=== PATIENT | male | born 1950 | race Caucasian/White ===

== ENCOUNTER → 2016-07-27 | Outpatient (CLI) | payer MEDICARE ==
--- NOTE | 2016-07-27 12:37 | US ---
EXAM DESCRIPTION: Venous,Lower Extremity LT CLINICAL HISTORY: 66 years, Male, PHLEBITIS COMPARISON: None. FINDINGS: The left common femoral, superficial femoral, deep femoral, popliteal, posterior tibial and peroneal veins identified. Appropriate flow compressibility and augmentation. IMPRESSION: No evidence deep venous thrombosis left lower extremity. Electronically signed by: Po Leblanc MD 07/27/2016 12:36 PM CDT
--- NOTE | 2016-07-29 06:22 | CT ---
Procedure: CT LUMBAR SPINE WITHOUT IV CONTRAST Exam date: 07/27/2016 12:00 AM CDT Ordering Provider: WALESKA DOSHI Clinical Indication: LOW BACK PAIN Comparison: Radiographs on August 22, 2013 Technique: Using a multislice scanner, sequential axial imaging was obtained of the lumbar spine. 2D sagittal and coronal reconstructed images were obtained. Findings: Extensive postoperative changes from prior posterior fusion construct with posterior transpedicular screws and rods at L3-L4 as well as transpedicular screws at S1. Anterior interbody fusions noted at L1-L2 as well as a lateral sideplate effusion at L1-L2. There is an interbody fusion at L5-S1 as well as L3-L4. There is solid osseous bridging posterior laterally spanning from L4 through S1. There is partial osseous bridging across the disc space of L1-L2. There is near complete osseous bridging posterior laterally at L2-L3. No definite acute fracture or malalignment. There is no evidence of hardware loosening or hardware fracture. Large right renal cyst is noted with multiple small cysts noted within the left kidney. Otherwise, the visualized retroperitoneum is without focal abnormality. IMPRESSION 1. Extensive postsurgical changes with prior anterior, lateral, and posterior fusion constructs as outlined above. No evidence of hardware failure. There is multilevel solid osseous bridging as outlined. 2. No acute fracture or new traumatic malalignment. 3. No high-grade osseous spinal canal or foraminal stenosis identified. Electronically signed by: Julian Cheng MD 07/29/2016 6:22 AM CDT
--- NOTE | 2016-07-30 01:19 | CT ---
Procedure: CT CERVICAL SPINE WITHOUT IV CONTRAST Exam Date: 07/27/2016 Ordering Provider: WALESKA DOSHI Clinical Indication: NECK PAIN Comparison: None Technique: Using a multislice scanner, sequential axial imaging was obtained from the skull base to the T1 level. 2-D sagittal and coronal reconstruction images were obtained. This exam was performed according to our departmental dose optimization program which includes use of automated exposure control, adjustment of the mA and/or kV according to patient size and/or use of iterative reconstruction technique. Findings: Anterior cervical fusion from C5 to C7. Slight reversal of the normal cervical lordosis. There is no acute fracture or subluxation. Multilevel intervertebral disc space narrowing, facet arthropathy and endplate osteophyte formation. There is severe osseous neural foraminal narrowing on the left at C3-C4. Disc osteophyte complex at C4-C5 with mild to moderate central spinal stenosis and mild to moderate left neural foraminal narrowing. There is at least mild to moderate neural foraminal narrowing bilaterally at C7-T1. There is no lytic or sclerotic lesion. The prevertebral soft tissues are normal. IMPRESSION: 1. No acute fracture or subluxation of the cervical spine. 2. Anterior cervical fusion from C5 to C7 with slight reversal of the normal cervical lordosis. 3. Severe osseous neural foraminal narrowing on the left at C3-C4. 4. Mild to moderate central spinal stenosis and mild to moderate left neural foraminal narrowing at C4-C5. 5. Mild to moderate neural foraminal narrowing bilaterally at C7-T1. Electronically signed by: Avery Rutherford MD 07/30/2016 1:18 AM CDT
== END | disposition home or self-care (01) ==
LOC: CT 11:42
PROVIDERS: ATTEND Family Medicine
DX: N30.00 Acute cystitis without hematuria (principal); I80.02 Phlebitis and thrombophlebitis of superficial vessels of left lower extremity; G60.9 Hereditary and idiopathic neuropathy, unspecified; E03.9 Hypothyroidism, unspecified; M43.22 Fusion of spine, cervical region; M43.26 Fusion of spine, lumbar region

== ENCOUNTER → 2016-11-14 | Outpatient (CLI) | payer MEDICARE | END | disposition home or self-care (01) | LOC: GMAB 10:48 | PROVIDERS: ATTEND Family Medicine | DX: E03.9 Hypothyroidism, unspecified (principal); Z12.5 Encounter for screening for malignant neoplasm of prostate | CPT/HCPCS: 84439; 84443; 84481; G0103 ==

== ENCOUNTER → 2016-12-21 | Outpatient (CLI) | payer MEDICARE, OTHER ==
--- NOTE | 2016-12-22 16:44 | US ---
EXAM DESCRIPTION: Carotid Duplex CLINICAL HISTORY: OCCLUSION AND STENOSIS OF BILATERAL CAROTID ARTERIES COMPARISON: None. TECHNIQUE: Transcutaneous scanning utilizing 2-dimensional and Doppler modes to evaluate the bilateral carotid systems and vertebral arteries. Percentage of diameter of stenosis or no stenosis recorded will be based upon NASCET criteria. FINDINGS: Peak systolic/end diastolic (CM-Sec) CCA Right 76/22 Left 153/32. ICA Right proximal 77/30, distal 102/32. Left proximal 90/15, Distal 87/30. Vertebral Right 50/18 Left 34/7. ECA (PS Only) Right 102 left 75. ICA/CCA peak systolic ratio: Right 1.3 Left 0.6 ICA/CCA end diastolic ratio: Right 1.5 Left 0.5 Vertebral arteries: antegrade flow. Comments: Moderate atherosclerotic calcification in the bilateral carotid bulbs. Bilateral spectral broadening in the pulse wave at these locations. Area stenosis in the right proximal ICA is 25%, 30% diameter stenosis. Area stenosis in the distal left CCA bulb is 50%, diameter stenosis 44%. IMPRESSION: 1. Doppler evaluation of the bilateral carotid systems and vertebral arteries shows no hemodynamically significant stenoses. 2. Moderate amount of calcified plaque seen in the carotid arteries bilaterally. Bilateral vertebral arteries showed antegrade-cephalad flow. Electronically signed by: Lamonte Elizabeth MD 12/22/2016 4:43 PM CDT
== END | disposition home or self-care (01) ==
LOC: US 13:31
PROVIDERS: ATTEND Family Medicine
DX: I65.23 Occlusion and stenosis of bilateral carotid arteries (principal)

== ENCOUNTER → 2017-03-28 | Outpatient (CLI) | payer MEDICARE, OTHER ==
--- NOTE | 2017-03-28 13:27 | RAD ---
EXAM DESCRIPTION: Pelvis CLINICAL HISTORY: PAIN IN LEFT HIP COMPARISON: August 30, 2015 IMPRESSION: Single AP supine view of the pelvis shows no evidence of acute fracture, focal bone destruction, or joint dislocation. Osteoarthritic changes are seen in both hips similar to previous exam. The weightbearing portion of the right femoral head is not seen because of overlying generator pack for spine stimulator limiting evaluation. Hardware fixation of the lower lumbosacral spine is again seen. Electronically signed by: Marc Ricks MD 03/28/2017 1:25 PM [facility]
--- NOTE | 2017-03-28 13:31 | RAD ---
4 views right knee. Indication: KNEE PAIN Comparison: None. Impression: No acute fracture or malalignment. Small suprapatellar knee effusion. Mild narrowing medial compartment without subchondral sclerosis or cystic change. Small joint line spurring of the superior patella. MRI could better evaluate for internal derangement as clinically indicated. Electronically signed by: Daniele Valle MD 03/28/2017 1:29 PM [employer]
== END | disposition home or self-care (01) ==
LOC: RAD 09:32
PROVIDERS: ATTEND Orthopaedic Surgery
DX: M25.561 Pain in right knee (principal); M25.551 Pain in right hip

== ENCOUNTER → 2017-10-24 | Outpatient (CLI) | payer MEDICARE, OTHER ==
--- NOTE | 2017-10-25 09:42 | CT ---
EXAM DESCRIPTION: Head CLINICAL HISTORY: MEMORY LOSS, HEADACHE, DIZZY COMPARISON: None available TECHNIQUE: Noncontrast head CT was performed with routine protocol. FINDINGS: Normal beth-white matter differentiation. Ventricles and sulci are normal for age. No high density hemorrhage, focal edema or shift of the midline. No sulcal effacement. Normal orbital contents. Basilar cisterns appear clear. Intact calvarium with no fracture or lytic lesion. Normal aeration of tympanic cavities and mastoid air cells. No fluid levels in the paranasal sinuses. Skull base appears intact. Symmetrical internal auditory canals. Coronal and sagittal reformatted images confirm the findings. IMPRESSION: No acute intracranial pathologic process. This exam was performed according to our departmental dose-optimization program, which includes automated exposure control, adjustment of the mA and/or kV according to patient size and/or use of iterative reconstruction technique. Total DLP equals 859.97 mGycm. Electronically signed by: Margarito Luong MD 10/25/2017 9:41 AM CDT
== END ==
LOC: CT 10:31
PROVIDERS: ATTEND Family Medicine
DX: R41.9 Unspecified symptoms and signs involving cognitive functions and awareness (principal); R41.82 Altered mental status, unspecified

== ENCOUNTER → 2017-11-21 | Outpatient (CLI) | payer MEDICARE, OTHER | LOC: GMAE 10:27 | PROVIDERS: ATTEND Family Medicine | DX: E03.9 Hypothyroidism, unspecified (principal); Z11.59 Encounter for screening for other viral diseases ==

== ENCOUNTER → 2017-11-22 | Outpatient (CLI) | payer MEDICARE, OTHER ==
--- NOTE | 2017-11-22 17:08 | US ---
EXAM DESCRIPTION: Aorta ultrasound exam with measurements CLINICAL HISTORY: 67 years Male, AAA COMPARISON: None. FINDINGS: Grayscale and color Doppler images of the abdominal aorta are obtained with multiple diameter measurements. Upper abdominal aorta proximally measures 3.1 x 3.5 cm which is prominent. The mid abdominal aorta measures 1.9 x 2.6 cm. The distal abdominal aorta measures 2.3 x 3.0 cm consistent with infrarenal abdominal aortic aneurysm. Common iliac arteries are normal in appearance with a diameter of 1.3 cm on the right and 1.4 cm on the left. Color flow images show positive color flow in the abdominal aorta and in the common iliac arteries. There is moderate arteriosclerotic plaque within the abdominal aorta. IMPRESSION: Ectatic infrarenal abdominal aorta measuring 3 cm in diameter. Follow-up as per recommendations below. AAA Size: Follow-up Recommendation (1): 2.6 - 2.9 cm Every 5 years (2) 3.0 - 3.4 cm Every 3 years 3.5 - 3.9 cm Every 12 months 4.0 - 4.4 cm Every 12 months, vasc consult rec 4.5 - 5.4 cm Every 6 months, vasc consult rec >=5.5 cm Referral to vascular surgeon recommended (1)Based upon the Society for Vascular Surgery Guidelines: J Vasc Surg. 2009 Dec;50(4 Suppl):S2-49 (2)For aortas of max adrian of 2.6-2.9 cm that meet criteria for AAA (>= 1.5 x proximal normal segment) Electronically signed by: Margarito Luong MD 11/22/2017 5:06 PM CDT
== END ==
LOC: US 10:30
PROVIDERS: ATTEND Family Medicine
DX: Z13.89 Encounter for screening for other disorder (principal); I77.811 Abdominal aortic ectasia

== ENCOUNTER → 2018-01-14 | Outpatient (CLI) | payer MEDICARE, OTHER ==
--- NOTE | 2018-01-14 13:45 | US ---
EXAM DESCRIPTION: Venous,Lower Extremity LT CLINICAL HISTORY: SWELLING OF LOWER LEG COMPARISON: None Available. TECHNIQUE: Left lower extremity venous duplex FINDINGS: Doppler evaluation of the left lower extremity deep veins was performed. Normal color flow is seen in the common femoral, superficial femoral, profunda femoral and greater saphenous veins. Normal flow is seen in the popliteal vein and veins below the knee in the calf. Normal venous compressibility and flow augmentation. Debris-filled left popliteal Rodriguez's cyst measures 1.8 x 1.1 x 4 cm. IMPRESSION: Negative for evidence of deep venous thrombosis on left lower extremity venous Doppler sonogram. Left popliteal Rodriguez's cyst. Electronically signed by: Margarito Luong MD 01/14/2018 1:43 PM CDT
--- NOTE | 2018-01-15 08:33 | CT ---
CT left shoulder without contrast INDICATION: Shoulder pain chronic TECHNIQUE: Noncontrast CT imaging left shoulder with helical CT CT images in the axial plane and multiplanar reformats This exam was performed according to our departmental dose-optimization program, which includes automated exposure control, adjustment of the mA and/or kV according to patient size and/or use of iterative reconstruction technique. FINDINGS: There is minimal osteophyte formation of the glenohumeral joint but no advanced arthrosis. Relatively neutral version of the glenoid. There is mild to moderate osteoarthrosis of the AC joint with mild mineralization/chondrocalcinosis. There is cystic change along the inferior glenoid. Mild inferior glenohumeral osteophytes. Minimal grade 1 marbling of the rotator cuff muscle bellies. No end-stage atrophy. IMPRESSION: Mild osteoarthrosis left shoulder No advanced muscle atrophy AC joint osteoarthrosis mild to moderate with mineralization/chondrocalcinosis Electronically signed by: Cory Fry MD 01/15/2018 8:31 AM CDT
== END ==
LOC: CT 11:36
PROVIDERS: ATTEND Orthopaedic Surgery
DX: M19.012 Primary osteoarthritis, left shoulder (principal); M25.512 Pain in left shoulder; M71.22 Synovial cyst of popliteal space [Baker], left knee; R22.42 Localized swelling, mass and lump, left lower limb

== ENCOUNTER → 2018-02-04 | Outpatient (CLI) | payer MEDICARE, OTHER ==
--- NOTE | 2018-02-04 14:17 | RAD ---
EXAM DESCRIPTION: Arthrogram Shoulder Right: RF CLINICAL HISTORY: TEAR OR RUPTURE IN RIGHT SHOULDER. Severe contrast allergy to gadolinium. COMPARISON: Post-arthrogram CT scan of the right shoulder same date. Arthrogram and post-arthrogram CT scan of the left shoulder on the same visit. TECHNIQUE: The procedure was explained to the patient with risks and benefits. The patient gave verbal and written consent. Contrast mixture of 10 mL of non-ionic 300 contrast and 10 mL of sterile normal saline was prepared. Patient supine on the fluoroscopic table with right shoulder in external rotation. The anterior mid superior right glenohumeral joint was localized by fluoroscopy. The skin was marked, then prepped and draped in a sterile fashion. Intradermal, subcutaneous and intramuscular lidocaine 1% was given for topical anesthesia. A 2 inch, 25-gauge needle was introduced into the anterior superior right glenohumeral joint capsule under fluoroscopic visualization. A test injection of 1 cc of non-ionic 300 contrast was performed under fluoroscopy. Additional 9 CC of contrast mixture prepared contrast mixture was then injected under fluoroscopy. The patient tolerated the procedure well. Active exercise. Patient was transferred to the CT suite for spiral-axial and reconstruction imaging. No immediate complications. 1 image of the right shoulder, right external rotation, with injection needle and postcontrast recorded for the patient's permanent medical record. Total fluoroscopic time was 0.4 minutes. DAP: 3.05 Gy-cm2. IMPRESSION: 1. Successful fluoroscopic-guided arthrography of the right shoulder prior to CT scan of the right shoulder. 2. Please refer to post arthrogram CT scan of the right shoulder and report, on this visit. Electronically signed by: Lamonte Elizabeth MD 02/04/2018 2:16 PM [facility]
--- NOTE | 2018-02-04 14:31 | CT ---
CT arthrogram left shoulder INDICATION: Shoulder pain concern for rotator cuff tear TECHNIQUE: Helical CT images through the left shoulder post arthrogram with multiplanar reformats This exam was performed according to our departmental dose-optimization program, which includes automated exposure control, adjustment of the mA and/or kV according to patient size and/or use of iterative reconstruction technique. FINDINGS: No rupture of the subscapularis. No bicep rupture or dislocation. Extracapsular portion is limited due to lack of contrast in the tendon sheath. Moderate AC joint osteoarthrosis with vacuum phenomenon. No high-grade partial or full-thickness tear of the supraspinatus or infraspinatus tendons. Bursal surface partial tears are not visible by CT arthrography. There is mild subchondral depression in the inferior glenoid with several cysts in the inferior aspect degenerative in appearance likely from prior trauma. Tiny ossicle along the inferior aspect as well coronal series 300 image 48 or minimal contrast extension into a small cyst. Mild multifocal synovitis. Mild fraying of the labrum. No displacement. Diffuse ill-defined fraying of the anterior labrum without displacement on the axial images. Prominent sublabral recess at the bicep labral anchor with mild undersurface fraying more posteriorly. IMPRESSION: No high-grade partial or full-thickness rotator cuff tear No advanced muscle atrophy AC joint arthrosis with vacuum phenomenon Diffuse labral fraying Mild glenohumeral osteoarthrosis with no active dislocation Electronically signed by: Cory Fry MD 02/04/2018 2:29 PM [employer]
--- NOTE | 2018-02-04 14:47 | CT ---
CT arthrogram right shoulder INDICATION: Shoulder pain rotator cuff tear TECHNIQUE: Helical CT images of the right shoulder post arthrogram with multiplanar reformats This exam was performed according to our departmental dose-optimization program, which includes automated exposure control, adjustment of the mA and/or kV according to patient size and/or use of iterative reconstruction technique. FINDINGS: No rupture of the subscapularis or retraction. No bicep rupture or dislocation. Mild to moderate AC joint osteoarthrosis. Diffuse degenerative labral fraying. Multifocal subchondral cysts and grade 4 chondrosis in the glenoid indicating mild to moderate glenohumeral osteoarthrosis. Mild undersurface fraying supraspinatus with no high-grade partial or full-thickness rotator cuff tear. No bursal contrast extension. Minimal grade 1 marbling of the rotator cuff muscle bellies symmetric. No bursal contrast extension. Cyst or anchor tract of the superior glenoid correlate with any previous surgery versus degenerative/osteoarthritic change IMPRESSION: AC joint and glenohumeral osteoarthrosis Degenerative glenoid labrum No full-thickness rotator cuff tear No advanced asymmetric atrophy. Reactive synovitis Glenoid retroversion related to osteoarthrosis without subluxation of the humerus Electronically signed by: Cory Fry MD 02/04/2018 2:46 PM [employer]
--- NOTE | 2018-02-04 19:20 | RAD ---
EXAM DESCRIPTION: Arthrogram Shoulder Left: RF CLINICAL HISTORY: TEAR OR RUPTURE IN LEFT SHOULDER COMPARISON: Post-arthrogram CT scan of the left shoulder same date. TECHNIQUE: The procedure was explained to the patient with risks and benefits. The patient gave verbal and written consent. Contrast mixture of 10 mL non-ionic 300 contrast and 10 mL of sterile normal saline was prepared. Patient supine on the fluoroscopic table with left shoulder in external rotation. The anterior mid superior left glenohumeral joint was localized by fluoroscopy. The skin was marked, then prepped and draped in a sterile fashion. Intradermal, subcutaneous and intramuscular 1% Xylocaine was given for topical anesthesia. A 2 inch, 25-gauge needle was introduced into the anterior superior left glenohumeral joint capsule under fluoroscopic visualization. A test injection of 1 cc of non-ionic 300 was performed under fluoroscopy. Additional 9 CC of prepared contrast mixture was then injected under fluoroscopy. The patient tolerated the procedure well. Active exercise. Patient was transferred to the CT suite for spiral-axial and reconstruction imaging. No immediate complications. 1 AP image of the shoulder in external rotation with the injection needle, post contrast injection recorded for the patient's permanent medical record. Total fluoroscopic time was 0.5 minute DAP: 3.02 Gy-cm2. IMPRESSION: Successful, fluoroscopic-guided intra-articular contrast injection of the left shoulder prior to CT scan of the left shoulder. Please refer to post arthrogram CT scan left shoulder examination and report on this visit. Electronically signed by: Lamonte Elizabeth MD 02/04/2018 7:18 PM [facility] [[email or web address]]
== END ==
LOC: RAD 09:00
PROVIDERS: ATTEND Orthopaedic Surgery
DX: M75.102 Unspecified rotator cuff tear or rupture of left shoulder, not specified as traumatic (principal); M75.101 Unspecified rotator cuff tear or rupture of right shoulder, not specified as traumatic; M19.012 Primary osteoarthritis, left shoulder; M19.011 Primary osteoarthritis, right shoulder

== ENCOUNTER → 2018-03-14 | Outpatient (CLI) | payer MEDICARE, OTHER | LOC: LAB.O 08:45 | PROVIDERS: ATTEND Orthopaedic Surgery | DX: M17.0 Bilateral primary osteoarthritis of knee (principal); M25.561 Pain in right knee ==

== ENCOUNTER → 2018-04-08 | Outpatient (CLI) | payer MEDICARE, OTHER | LOC: GMAE 14:46 | PROVIDERS: ATTEND Family Medicine | DX: R06.02 Shortness of breath (principal); E03.9 Hypothyroidism, unspecified ==

== ENCOUNTER → 2018-04-25 | Outpatient (CLI) | payer MEDICARE, OTHER ==
--- NOTE | 2018-04-25 11:44 | CT ---
EXAM DESCRIPTION: Cervical Spine CLINICAL HISTORY: CHRONIC PAIN COMPARISON: None Available. TECHNIQUE: Cervical CT is performed with thin-section axial imaging. MPRs and 3-D reconstructions are created and reviewed as well. FINDINGS: The craniocervical junction is intact. The odontoid process is in good alignment with the lateral masses of C2. Reversal of the normal lordotic curvature is noted. Anterior spinal fixation hardware is noted traversing C5, C6 and C7 vertebral bodies. The vertebral body heights are well-maintained with no acute compression deformity. There is multilevel degenerative disc disease and uncovertebral joint arthropathy. No evidence of subluxation or spondylolisthesis. C2-C3: Mild right and moderate left neural foraminal narrowing is noted secondary to uncovertebral joint arthropathy. C3-C4: Moderate bilateral neural foraminal narrowing is noted secondary to uncovertebral joint arthropathy. C4-C5: Posterior disc osteophyte complex with resultant moderate central canal stenosis. There is moderate to severe bilateral neural foraminal narrowing secondary to uncovertebral joint arthropathy. C5-C6: Mild central canal stenosis and moderate bilateral neural foraminal narrowing is noted. C6-C7: Moderate to severe right and moderate left neural foraminal narrowing is noted secondary to uncovertebral joint arthropathy. C7-T1: Moderate to severe bilateral neural foraminal narrowing is noted secondary to uncovertebral joint arthropathy. The visualized prevertebral and paravertebral soft tissues appear normal. IMPRESSION: Multilevel degenerative disc disease and uncovertebral joint arthropathy throughout the cervical spine with variable degrees of neural foraminal narrowing as detailed above. This exam was performed according to our departmental dose-optimization program, which includes automated exposure control, adjustment of the mA and/or kV according to patient size and/or use of iterative reconstruction technique. Electronically signed by: Judy Cleveland MD 04/25/2018 11:41 AM [facility]
--- NOTE | 2018-04-25 11:46 | CT ---
EXAM DESCRIPTION: Thoracic Spine CLINICAL HISTORY: 67 years Male, CHRONIC PAIN COMPARISON: None. TECHNIQUE: Contiguous axial images of the thoracic spine were obtained without intravenous contrast administration. Sagittal, coronal and 3-D reconstructions were reviewed. FINDINGS: The vertebral body heights are well-maintained with no acute compression deformity. There is mild multilevel degenerative disc disease throughout the thoracic spine. No significant canal stenosis or neural foraminal narrowing. Neural stimulator leads are identified at T8-T9 level. No evidence of subluxation. A large cystic lesion is partially visualized in the upper pole of the right kidney. Scattered ground glass opacities are identified in the bilateral lower lobes. These could be secondary to poor inspiration. IMPRESSION: Mild multilevel degenerative disc disease of the thoracic spine. No significant canal stenosis or neural foraminal narrowing. Electronically signed by: Judy Cleveland MD 04/25/2018 11:44 AM [facility]
--- NOTE | 2018-04-25 11:54 | CT ---
EXAM DESCRIPTION: Lumbar Spine CLINICAL HISTORY: 67 years Male, CHRONIC COMPARISON: CT of the lumbar spine dated 07/27/2016. TECHNIQUE: Contiguous axial images of the lumbar spine were obtained without intravenous contrast administration. Sagittal, coronal and 3-D reconstructions were reviewed. This exam was performed according to our departmental dose-optimization program, which includes automated exposure control, adjustment of the mA and/or kV according to patient size and/or use of iterative reconstruction technique. FINDINGS: Posterior spinal fixation hardware is noted traversing L3 and L3 vertebral bodies and L5 and S1 vertebral bodies. There is persistent anterolisthesis of L5 over S1. L1-L2: Mild to moderate central canal stenosis and moderate bilateral neural foraminal narrowing. L2-L3: Mild central canal stenosis and moderate to severe bilateral neural foraminal narrowing. L3-L4: Mild central canal stenosis and mild bilateral neural foraminal narrowing. L4-L5: Mild central canal stenosis and [id number] bilateral neural foraminal narrowing. L5-S1: Moderate to severe bilateral neural foraminal narrowing is noted. Mild atherosclerotic disease is noted in the abdominal aorta. The left kidney is atrophied with few cystic lesions and calcifications measuring up to 4 mm. Cystic lesion is partially visualized in the right kidney. IMPRESSION: Multilevel degenerative disc disease and facet arthropathy throughout the lumbar spine with variable degrees of neural foraminal narrowing, worse at L5-S1 level. Electronically signed by: Judy Cleveland MD 04/25/2018 11:52 AM [employer]
== END ==
LOC: CT 09:00
PROVIDERS: ATTEND Family Medicine
DX: G89.4 Chronic pain syndrome (principal); M79.18 Myalgia, other site; M51.36 Other intervertebral disc degeneration, lumbar region; M51.34 Other intervertebral disc degeneration, thoracic region; M50.320 Other cervical disc degeneration, mid-cervical region, unspecified level

== ENCOUNTER → 2018-05-01 | Outpatient (CLI) | payer MEDICARE, OTHER ==
--- NOTE | 2018-05-02 10:57 | CT ---
EXAM DESCRIPTION: Abdoment/Pelvis w/o Contrast: Computed Tomography. CLINICAL HISTORY: 67 years Male CHRONIC KIDNEY DISEASE COMPARISON: CT scan of the abdomen and pelvis 04/03/2013. TECHNIQUE: Spiral-axial scans 2.5 x 2.5 mm intervals through the abdomen and pelvis without oral or IV contrast. Coronal and sagittal 2.0 mm reconstructions. Total Exam DLP: 1340.67 mGy-cm. This exam was performed according to our departmental CT dose-optimization program which includes automated exposure control, adjustment of the mA and/or kV according to patient size and/or use of iterative reconstruction technique; to reduce radiation dose to as low as reasonably achievable (ALARA). FINDINGS: Lung bases and pleura: Negative. Liver, stomach, spleen, and adrenal glands: Small sliding gastric hiatal hernia. Stable cyst inferior liver. Small splenule. Other solid organs are negative. Pancreas, Gallbladder, and Ducts: Surgical clips in the gallbladder fossa with no fluid. Duct and pancreas unremarkable. Kidneys and Ureters: 8.7 cm cyst upper pole right kidney. 3 measurable cysts in the left kidney 4 cm, 1.5 cm, and 3.5 cm. Smallest cyst is partially calcified wall. Calcification in the renal parenchyma versus renal stone lower pole 3.5 mm. Bilateral renal cortical thinning more on the left. No hydronephrosis or significant perinephric stranding or edema. Ureters unremarkable. Mesentery: No free fluid or free air. No abnormal mesenteric stranding or fascial thickening. Aorta: Moderate atherosclerotic calcification distally with minimal ectasia. No para-aortic mass. Small Bowel: Negative. Terminal Ileum/Cecum: Normal caliber of the appendix and normal density of the surrounding fat. Otherwise unremarkable. Colon: Diffuse fecal material with moderate redundancy of the sigmoid colon. Scattered diverticula with no complications visualized. Pelvic Organs: Prostate gland abutting the bladder and the seminal vesicles is inhomogeneous density. No large pelvic mass or fluid Spine and Bony Pelvis: Spondylosis at multiple levels of the lumbar spine. Previous fusion construct at multiple levels. Still present bilaterally L2-3 and interbody fusion L5-S1. Grade 2 anterolisthesis L5-S1. Bilateral hip joint arthrosis. Large fat filled cyst in the superior medial right femoral head. Abdominal Wall/Back Soft Tissues: Right fatty inguinal hernia not containing bowel. Smaller left inguinal hernia. Minimal thinning of the midline anterior abdominal wall at the umbilicus but no hernia. 4 cm mesenteric hernia in the left posterior lateral abdominal wall at the level of the left kidney. New since the prior study, less likely to represent a lipoma. Outer muscle layer is intact. Not containing bowel. No fatty stranding or fascial thickening. IMPRESSION: 1. Left posterior lateral, wall mesenteric hernia new since the prior study, at the level of the left kidney. Not containing bowel kidney. No fluid, fatty stranding, or fascial thickening. Less likely to represent a new lipoma. Small inguinal hernias not containing bowel. Anterior midline mesenteric abdominal cavity bulging near the umbilicus but no hernia. 2. Bilateral renal cysts. Bilateral cortical atrophy. Small calcification in the wall of smaller left renal cyst. Possible stone in the inferior pole nonobstructing. Physiologic pararenal fatty stranding. No hydronephrosis or hydroureter. 3. Fusion construct lumbar spine. Grade 2 L5-S1 anterolisthesis and disc space loss appears stable. 4. Diverticulosis sigmoid colon with no complications. Small sliding gastric hernia is stable. Electronically signed by: Lamonte Elizabeth MD 05/02/2018 10:54 AM [facility]
== END ==
LOC: CT 11:16
PROVIDERS: ATTEND Internal Medicine Nephrology
DX: N18.4 Chronic kidney disease, stage 4 (severe) (principal); K46.9 Unspecified abdominal hernia without obstruction or gangrene; K40.90 Unilateral inguinal hernia, without obstruction or gangrene, not specified as recurrent; N28.1 Cyst of kidney, acquired; K57.30 Diverticulosis of large intestine without perforation or abscess without bleeding; Z98.1 Arthrodesis status

== ENCOUNTER → 2018-05-02 | Outpatient (CLI) | payer MEDICARE, OTHER | LOC: LAB.O 13:31 | PROVIDERS: ATTEND Internal Medicine Nephrology | DX: N18.4 Chronic kidney disease, stage 4 (severe) (principal) ==

== ENCOUNTER → 2018-06-19 | Outpatient (CLI) | payer MEDICARE, OTHER | LOC: GMAE 16:34 | PROVIDERS: ATTEND Family Medicine | DX: E03.9 Hypothyroidism, unspecified (principal) ==

== ENCOUNTER → 2018-07-31 | Outpatient (CLI) | payer MEDICARE, OTHER ==
--- NOTE | 2018-07-31 12:46 | US ---
EXAM DESCRIPTION: Venous,Lower Extremity LT: ULTRASOUND. CLINICAL HISTORY: PAIN IN LEFT LEG COMPARISON: None Available. TECHNIQUE: Day-scale and doppler sonographic evaluation of the deep venous system of the left lower extremity. FINDINGS: Doppler evaluation shows normal color flow and normal phasicity and augmentation of the left common femoral vein, femoral vein, popliteal vein, peroneal, anterior and posterior tibial vein. The left lower extremity deep veins were completely compressible; normal occlusion with transducer pressure. Day-scale survey showed no echogenic thrombus within these veins. IMPRESSION: 1. Duplex ultrasound evaluation of the left lower extremity deep venous system showing no evidence of thrombosis. Electronically signed by: Lamonte Elizabeth MD 07/31/2018 12:44 PM CDT
== END ==
LOC: GMAJS 11:37
PROVIDERS: ATTEND Physician Assistant
DX: M79.605 Pain in left leg (principal); J06.9 Acute upper respiratory infection, unspecified

== ENCOUNTER → 2018-10-17 | Outpatient (CLI) | payer MEDICARE, OTHER ==
--- NOTE | 2018-10-18 07:15 | RAD ---
PROVIDED CLINICAL HISTORY/REASON FOR EXAM: M25.561,M25.551,M25.562,M25.552 Findings: Number of images: 4 Location: Left knee No acute fracture or dislocation. Joint spaces are maintained. Small joint effusion. Tiny patellar osteophytes. IMPRESSION: Small left knee joint effusion. No acute osseous abnormality. Electronically signed by: Aniceto Hughes MD 10/18/2018 7:13 AM CDT
--- NOTE | 2018-10-18 07:17 | RAD ---
PROVIDED CLINICAL HISTORY/REASON FOR EXAM: M25.561,M25.551,M25.562,M25.552 Findings: Number of images: 4 Location: Right knee No acute fracture or dislocation. Mild medial compartment narrowing with weightbearing. Trace joint effusion. Tiny patellar osteophytes. IMPRESSION: 1. Trace right knee joint effusion with mild medial compartment narrowing. 2. No acute osseous abnormality. : Electronically signed by: Aniceto Hughes MD 10/18/2018 7:15 AM CDT
--- NOTE | 2018-10-18 07:19 | RAD ---
PROVIDED CLINICAL HISTORY/REASON FOR EXAM: M25.561,M25.551,M25.562,M25.552 Findings: Number of images: One Location: Pelvis Neurostimulator device. Posterior decompression vertical stabilization spanning L3/L4 and L5/S1. No obvious signs of hardware complication. Osteopenia. No acute fracture or dislocation. Moderate right hip joint space narrowing with subchondral sclerosis and cyst formation. Mild left hip joint space narrowing with subjacent subchondral sclerosis. Mild bilateral sacroiliac degenerative change. No focal soft tissue swelling. IMPRESSION: Chronic degenerative change about the pelvis, most pronounced in the right hip. No acute osseous abnormality. Electronically signed by: Aniceto Hughes MD 10/18/2018 7:18 AM CDT
== END ==
LOC: RAD 09:25
PROVIDERS: ATTEND Orthopaedic Surgery
DX: M16.0 Bilateral primary osteoarthritis of hip (principal); M25.861 Other specified joint disorders, right knee; M25.461 Effusion, right knee; M25.462 Effusion, left knee

== ENCOUNTER → 2018-10-23 | Outpatient (CLI) | payer MEDICARE, OTHER | LOC: GMAE 17:29 | PROVIDERS: ATTEND Family Medicine | DX: R10.13 Epigastric pain (principal) ==

== ENCOUNTER → 2018-10-25 | Outpatient (CLI) | payer MEDICARE, OTHER ==
--- NOTE | 2018-10-25 11:05 | CT ---
EXAM DESCRIPTION: Abdoment/Pelvis w/o Contrast CLINICAL HISTORY: 68 years, Male, EPIGASTRIC PAIN COMPARISON: CT abdomen and pelvis 05/01/2018 TECHNIQUE: CT of the abdomen and pelvis is performed without intravenous contrast. Multiplanar reconstructions were obtained. FINDINGS: The lung bases are clear. The Liver, spleen, and pancreas are unremarkable. Small right hepatic lobe hypodensity, unchanged. Prior cholecystectomy. Unchanged morphology of the mildly atrophic left kidney and dominant right kidney with numerous bilateral renal cysts measuring up to 8 cm within the right kidney, unchanged. Small left-sided calyceal stones are present measuring up to 3 mm, unchanged. No bowel obstruction or focal bowel wall thickening. The appendix is normal. There is no lymphadenopathy, inflammation, or free fluid observed. No acute osseous abnormality. Multilevel lumbar spine fixation. Spinal cord stimulator leads enters the lower thoracic epidural space. The fat-containing left lumbar hernia appears unchanged. IMPRESSION: 1. No acute intra-abdominal/pelvic process is seen on CT. 2. Prior cholecystectomy. 3. Unchanged punctate left nonobstructing calyceal nephrolithiasis. This exam was performed according to our departmental dose-optimization program, which includes automated exposure control, adjustment of the mA and/or kV according to patient size and/or use of iterative reconstruction technique. Electronically signed by: Jayson Craig DO 10/25/2018 11:04 AM CDT
== END ==
LOC: CT 09:01
PROVIDERS: ATTEND Family Medicine
DX: R10.13 Epigastric pain (principal); N20.0 Calculus of kidney; Z90.49 Acquired absence of other specified parts of digestive tract

== ENCOUNTER → 2018-12-10 | Outpatient (CLI) | payer MEDICARE, OTHER | LOC: GMAE 13:41 | PROVIDERS: ATTEND Family Medicine | DX: Z01.812 Encounter for preprocedural laboratory examination (principal); E55.9 Vitamin D deficiency, unspecified; E03.9 Hypothyroidism, unspecified; I10 Essential (primary) hypertension; E78.2 Mixed hyperlipidemia; Z79.899 Other long term (current) drug therapy; Z79.01 Long term (current) use of anticoagulants ==

== ENCOUNTER → 2019-08-18 | Outpatient (CLI) | payer MEDICARE, OTHER | LOC: GMAE 11:33 | PROVIDERS: ATTEND Family Medicine | DX: E03.9 Hypothyroidism, unspecified (principal); I10 Essential (primary) hypertension; M10.9 Gout, unspecified; Z12.5 Encounter for screening for malignant neoplasm of prostate | CPT/HCPCS: 84439; 84443; 84481; 84550; G0103 ==

== ENCOUNTER → 2019-09-03 | Outpatient (CLI) | payer MEDICARE, OTHER ==
--- NOTE | 2019-09-04 16:15 | US ---
EXAM DESCRIPTION: Renal: Ultrasound. CLINICAL HISTORY: 69 years Male CHRONIC KIDNEY DISEASE COMPARISON: CT abdomen and pelvis October 2018. TECHNIQUE: Transcutaneous scanning: Two-dimensional and Doppler modes. FINDINGS: Right kidney measures 13.2 x 7.8 x 5.9 cm; renal volume 316.1 mL. Mid-renal cortical thickness normal with increased cortical .echogenicity, similar to the liver. 8.1 x 7.5 x 6.3 cm cyst upper pole right kidney. 2.6 x 2.4 cm cyst lower pole right kidney. No echogenic stones or hydronephrosis. No hydronephrosis No echogenic stones. Lobulated contour of the kidney with no perinephric fluid. Normal vascularity. Proximal ureter not visualized. Left kidney measures 9.6 x 5.0 x 5.6 cm; renal volume 139.8 mL. Mid-renal cortical thickness 9 mm with increased cortical. Echogenicity, similar to the right kidney. Cyst with septation mid left kidney measuring 4.4 x 3.7 cm. A second cyst measures 4.0 x 3.8 cm. No hydronephrosis. No echogenic stones. Lobulated contour of the kidney with no perinephric fluid. Normal vascularity.. Proximal ureter not seen.. Urinary bladder was visualized. Bladder volume 212.4 mL. Ureteral jet in the bladder not seen bilaterally by color Doppler. Patient did not void. Abdominal aorta: Normal caliber from the proximal segment to the distal bifurcation. IMPRESSION: 1. Enlarged right kidney with multiple cysts and mild to moderate degree of medical renal disease, based on ultrasound appearance of. Renal cortex. No hydronephrosis or echogenic stones. 2. Small left kidney with renal cortical atrophy and increased echogenicity which could indicate advanced disease. Multiple cysts. No echogenic stones or hydronephrosis. Similar appearance of the kidneys on CT scan taking into account different modalities, and time lapse. 3. Urinary bladder moderately distended. Abdominal aorta normal caliber. Electronically signed by: Lamonte Elizabeth MD 09/04/2019 4:14 PM CDT
== END ==
LOC: US 14:46
PROVIDERS: ATTEND Urology
DX: N18.9 Chronic kidney disease, unspecified (principal); N28.1 Cyst of kidney, acquired; N26.1 Atrophy of kidney (terminal)

== ENCOUNTER → 2019-11-11 | Outpatient (CLI) | payer MEDICARE, OTHER | END | disposition home or self-care (01) | LOC: GMAE 10:21 | PROVIDERS: ATTEND Family Medicine | DX: E03.9 Hypothyroidism, unspecified (principal) ==

== ENCOUNTER → 2019-12-29 | Outpatient (CLI) | payer MEDICARE, OTHER | LOC: GMAE 14:42 | PROVIDERS: ATTEND Family Medicine | DX: N94.5 Secondary dysmenorrhea (principal); N10 Acute pyelonephritis ==

== ENCOUNTER → 2019-12-31 | Outpatient (CLI) | payer MEDICARE, OTHER ==
--- NOTE | 2019-12-31 19:06 | US ---
PROVIDED CLINICAL HISTORY/REASON FOR EXAM: ABN LIVER FUNCTION TECHNIQUE: Real-time sonographic examination of the right upper quadrant was performed by a felt dyeing machine tender and multiple images were saved for interpretation. COMPARISON: October 25, 2018 FINDINGS: The pancreas is mostly obscured by bowel gas. Liver echogenicity and morphology are normal. Hepatic lobe cyst measuring 1.7 cm. Liver size is normal. There is no intrahepatic biliary dilation. The common bile duct is normal. The common bile duct measures 5 mm. Cholecystectomy. The right kidney measures 12.0 x 7.6 x 7.7 cm. No hydronephrosis. Right renal cyst measuring 8.2 cm. Right renal cyst measuring 3.2 cm. IMPRESSION: 1. Cholecystectomy. 2. Benign hepatic cyst. 3. Benign right renal cysts. Electronically signed by: Aniceto Hughes MD 12/31/2019 7:04 PM CDT
== END ==
LOC: LAB.O 08:00
PROVIDERS: ATTEND Family Medicine
DX: R94.5 Abnormal results of liver function studies (principal); Z90.49 Acquired absence of other specified parts of digestive tract; K76.89 Other specified diseases of liver; N28.1 Cyst of kidney, acquired

== ENCOUNTER → 2020-03-03 | Outpatient (CLI) | payer MEDICARE, OTHER | LOC: GMAE 10:51 | PROVIDERS: ATTEND Family Medicine | DX: E03.9 Hypothyroidism, unspecified (principal) ==